=== PATIENT | female | born 2000 | race Caucasian/White ===

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

== ENCOUNTER 2023-10-09 22:55 | Emergency (ER) | payer MEDICAID ==
[~2023-10-09] VITALS: Ht 162.6 cm; Wt 58.2 kg
[2023-10-09 22:58] VITALS: BP 135/84; PULSE 84; TEMP 98.3
[2023-10-09] MEDS ORDERED: diphenhydrAMINE 25 MG CAP PO ONE (23:30)
== END 2023-10-09 23:44 | disposition home or self-care (01) ==
LOC: COL.ER 22:55
DX: O99.712 Diseases of the skin and subcutaneous tissue complicating pregnancy, second trimester (principal); L50.9 Urticaria, unspecified; Z3A.21 21 weeks gestation of pregnancy